=== PATIENT | male | born 1965 | race Caucasian/White ===

== ENCOUNTER 2021-10-03 12:16 | Inpatient (IN) | payer MEDICARE, SELFPAY ==
[2021-10-03] MEDS ORDERED: Morphine 4 MG/ML VIAL ONE (13:12)
[2021-10-03 14:00] LABS: #Lymphocytes 0.4 thou/uL (1.20-3.40); #Monocytes 1.3 thou/uL (0.11-0.59); #Neutrophils 9.7 thou/uL (1.40-6.50); %Basophils 0.1 % (0.0-1.0); %Eosinophils 0.1 % (0.0-10.0); %Lymphocytes 3.2 % (21.0-51.0); %Monocytes 11.4 % (0.0-10.0); %Neutrophils 85.2 % (42.0-75.0); Mean Corpuscular HGB CONC 33.2 g/dL (32.0-36.0); Mean Corpuscular Hemoglobin 33.8 pg (27.0-31.0); Mean Platelet Volume 7.4 fL (7.4-10.4); Platelet Count 156 thou/uL (130-400); RBC Distribution Width 11.6 % (11.5-14.5); Red Blood Cell (RBC) Count 3.55 mill/uL (4.70-6.10); White Blood Cell (WBC) Count 11.3 thou/uL (4.8-10.8)
[2021-10-03 14:24] LABS: ALT (SGPT) 28 U/L (8-55); AST (SGOT) 46 U/L (5-34); Albumin 3.3 g/dL (3.5-5.0); Alkaline Phosphatase 79 U/L (40-110); Anion Gap 17 mmol/L (10-20); BUN (Urea Nitrogen) 5 mg/dL (8.4-25.7); Bilirubin, Total 1.3 mg/dL (0.2-1.2); Calc. Creatinine Clearance 0 mL/min (70-130); Calcium 8.2 mg/dL (7.8-10.44); Carbon Dioxide 22 mmol/L (22-29); Chloride 101 mmol/L (98-107); Globulin 3.6 g/dL (2.4-3.5); Glucose 151 mg/dL (70-105); Lipase 18 U/L (8-78); Potassium 3.7 mmol/L (3.5-5.1); Protein, Total 6.9 g/dL (6.0-8.3); Sodium 136 mmol/L (136-145)
[2021-10-03] MEDS ORDERED: Lorazepam 2 MG/ML VIAL ONE ×2 (14:37→14:52)
[2021-10-03 14:54] LABS: INR-International Normal Ratio 1.1; PTT 28.9 sec (22.9-36.1); Prothrombin Time 14.3 sec (12.0-14.7)
[2021-10-03] MEDS ORDERED: Dextrose 50% Abboject 50 ML SYRINGE SLOW IVP PRN (15:26)
[2021-10-03] MEDS ORDERED: Dextrose 5% in Water 1,000 ML IV PRN (15:26)
[2021-10-03] MEDS ORDERED: Ondansetron ODT 4 MG TAB PO PRN (15:26)
[2021-10-03] MEDS ORDERED: Ondansetron PF 4 MG/2 ML Vial IVP PRN (15:26)
[2021-10-03] MEDS ORDERED: Adenosine 6 MG/2 ML VIAL ONE ×2 (15:27→15:42)
[2021-10-03 15:34] LABS: Magnesium 1.4 mg/dL (1.6-2.6); Phosphorus 3.5 mg/dL (2.3-4.7)
[2021-10-03] MEDS ORDERED: traMADol HCl 50 MG TAB PO PRN (15:34)
[2021-10-03] MEDS ORDERED: Magnesium 2 GM/50 ML BAG (IN WATER) ONE (15:42)
[2021-10-03] MEDS ORDERED: Oxazepam 10 MG CAP PO SCH (16:00)
[2021-10-03 16:05] LABS: Actual Bicarbonate (HCO3v) 18 mEq/L (22-28); Analyzer IN Cardio ER; Base Excess -4.1 mEq/L (-2.0 to +3.0); Chloride (VBG) 102 mmol/L (98-106); Hemoglobin (Hb) 13.1 g/dL (13.1-17.2); Potassium (VBG) 3.58 mmol/L (3.70-5.30); pH (venous) 7.46 (7.32-7.43)
[2021-10-03] MEDS ORDERED: Ibuprofen 200 MG TAB PO SCH (16:15)
[2021-10-03] MEDS ORDERED: Metoprolol Tartrate 5 MG/5 ML VIAL ONE ×2 (16:43→19:16)
[2021-10-03] MEDS ORDERED: Metoprolol Tartrate 25 MG TAB PO SCH (17:00)
[2021-10-03 17:45] LABS: Lactic Acid 3.4 mmol/L (0.5-2.2)
[2021-10-03] MEDS ORDERED: Ibuprofen 200 MG TAB ONE (17:56)
[2021-10-03] MEDS: Lactated Ringer's 1,000 ML IV SCH (18:13)
[2021-10-03] MEDS: Acetaminophen 325 MG TAB PO SCH (18:45)
[2021-10-03] MEDS ORDERED: Metoprolol Tartrate 25 MG TAB ONE (18:48)
[2021-10-03] MEDS ORDERED: traMADol HCl 50 MG TAB ONE (18:48)
[2021-10-03] MEDS: traMADol HCl 50 MG TAB PO SCH (18:51)
[2021-10-03] MEDS ORDERED: hydrALAZINE 20 MG/ML VIAL SLOW IVP PRN (19:20)
[2021-10-03] MEDS ORDERED: Labetalol HCl 100 MG/20 ML VIAL SLOW IVP PRN (19:21)
[2021-10-03] MEDS ORDERED: Famotidine 20 MG TAB ONE (21:24)
[2021-10-03] MEDS: Famotidine 20 MG TAB PO SCH (21:30)
[2021-10-03] MEDS: Gabapentin 300 MG CAP PO SCH (22:51)
[2021-10-03] MEDS: Oxazepam 10 MG CAP PO SCH (22:53)
[2021-10-04] MEDS ORDERED: Acetaminophen 325 MG TAB ONE (00:35)
[2021-10-04] MEDS ORDERED: Ibuprofen 200 MG TAB ONE (00:35)
[2021-10-04] MEDS ORDERED: traMADol HCl 50 MG TAB ONE (00:35)
[2021-10-04] MEDS: Ibuprofen 200 MG TAB PO SCH ×4 (00:43→21:01)
[2021-10-04] MEDS: Acetaminophen 325 MG TAB PO SCH ×5 (00:44→22:51)
[2021-10-04 01:17] LABS: Anion Gap 15 mmol/L (10-20); BUN (Urea Nitrogen) 9 mg/dL (8.4-25.7); Calc. Creatinine Clearance 0 mL/min (70-130); Calcium 8.6 mg/dL (7.8-10.44); Carbon Dioxide 25 mmol/L (22-29); Chloride 100 mmol/L (98-107); Glucose 141 mg/dL (70-105); Potassium 3.9 mmol/L (3.5-5.1); Sodium 136 mmol/L (136-145)
[2021-10-04 04:24] LABS: #Lymphocytes 0.8 thou/uL (1.20-3.40); #Monocytes 1.4 thou/uL (0.11-0.59); #Neutrophils 7.1 thou/uL (1.40-6.50); %Basophils 0.2 % (0.0-1.0); %Eosinophils 0.1 % (0.0-10.0); %Lymphocytes 8.7 % (21.0-51.0); %Monocytes 14.7 % (0.0-10.0); %Neutrophils 76.3 % (42.0-75.0); Mean Corpuscular HGB CONC 33.7 g/dL (32.0-36.0); Mean Corpuscular Hemoglobin 33.9 pg (27.0-31.0); Mean Platelet Volume 7.5 fL (7.4-10.4); Platelet Count 138 thou/uL (130-400); RBC Distribution Width 11.5 % (11.5-14.5); Red Blood Cell (RBC) Count 2.96 mill/uL (4.70-6.10); White Blood Cell (WBC) Count 9.3 thou/uL (4.8-10.8)
[2021-10-04 04:45] LABS: Anion Gap 15 mmol/L (10-20); BUN (Urea Nitrogen) 10 mg/dL (8.4-25.7); Calc. Creatinine Clearance 0 mL/min (70-130); Calcium 8.1 mg/dL (7.8-10.44); Carbon Dioxide 23 mmol/L (22-29); Chloride 99 mmol/L (98-107); Glucose 130 mg/dL (70-105); Magnesium 2.2 mg/dL (1.6-2.6); Phosphorus 2.5 mg/dL (2.3-4.7); Potassium 3.6 mmol/L (3.5-5.1); Sodium 133 mmol/L (136-145)
[2021-10-04] MEDS ORDERED: Morphine 2 MG/ML VIAL ONE (05:12)
[2021-10-04] MEDS: Morphine 2 MG/ML VIAL SLOW IVP PRN (05:23)
[2021-10-04] MEDS: traMADol HCl 50 MG TAB PO SCH ×5 (06:30→22:51)
[2021-10-04] MEDS: Lactated Ringer's 1,000 ML IV SCH ×2 (06:31→21:35)
[2021-10-04 06:45] VITALS: BMI 26.7
[2021-10-04] MEDS ORDERED: CEFAZOLIN 2 GM in Sodium Chloride 0.9% 100 ML IVPB SCH (07:30)
[2021-10-04] MEDS ORDERED: Thiamine 100 MG TAB PO SCH (09:00)
[2021-10-04] MEDS ORDERED: Metoprolol Tartrate 25 MG TAB PO SCH (09:00)
[2021-10-04] MEDS ORDERED: Sodium Chloride 0.9% 100 ML ONE (09:47)
[2021-10-04] MEDS ORDERED: Metoprolol Tartrate 5 MG/5 ML VIAL ONE (09:47)
[2021-10-04] MEDS ORDERED: CEFAZOLIN 2 GM VIAL ONE (09:47)
[2021-10-04] MEDS ORDERED: Midazolam HCl 2 mg/2 ml Vial ONE (10:25)
[2021-10-04] MEDS ORDERED: fentaNYL Citrate/PF 100 MCG/2 ML SYRINGE ONE ×3 (10:25→14:32)
[2021-10-04] MEDS ORDERED: Diazepam 5 MG TAB ONE (10:34)
[2021-10-04] MEDS ORDERED: Lidocaine 1% PF 5 ML VIAL ONE (10:58)
[2021-10-04] MEDS ORDERED: Glycopyrrolate 0.2 MG/ML 5 ML SYRINGE ONE (10:58)
[2021-10-04] MEDS ORDERED: PHENYLEPHRINE-NS 100 MCG/ML 10 ML SYRINGE ONE ×2 (10:58→12:17)
[2021-10-04] MEDS ORDERED: ePHEDrine 50 MG/ML VIAL ONE (10:58)
[2021-10-04] MEDS ORDERED: Rocuronium Bromide 10 MG/ML (10ML VIAL) ONE (10:58)
[2021-10-04] MEDS ORDERED: Ondansetron PF 4 MG/2 ML Vial ONE (10:58)
[2021-10-04] MEDS ORDERED: PROPOFOL 200 MG/20 ML VIAL ONE (10:58)
[2021-10-04] MEDS ORDERED: Dexamethasone 20 MG/5 ML VIAL ONE (10:58)
[2021-10-04] MEDS: Ascorbic Acid 500 mg Chewable Tablet PO SCH (11:54)
[2021-10-04] MEDS: Famotidine 20 MG TAB PO SCH ×2 (11:54→21:02)
[2021-10-04] MEDS: Gabapentin 300 MG CAP PO SCH ×3 (11:54→21:02)
[2021-10-04] MEDS: Folic Acid 1 MG TAB PO SCH (11:54)
[2021-10-04] MEDS: Oxazepam 10 MG CAP PO SCH ×4 (11:55→21:02)
[2021-10-04] MEDS ORDERED: HYDROmorphone 2 MG/ML VIAL SLOW IVP PRN (14:15)
[2021-10-04] MEDS ORDERED: Ketorolac Tromethamine 30 MG/ML VIAL IVP PRN (14:15)
[2021-10-04] MEDS ORDERED: Ondansetron HCl/PF 4 MG/2 ML Vial IVP PRN (14:15)
[2021-10-04] MEDS ORDERED: Meperidine HCl/PF 25 MG/ML VIAL SLOW IVP PRN ×2 (14:15)
[2021-10-04] MEDS ORDERED: Promethazine HCl 25 MG/ML VIAL IM PRN (14:15)
[2021-10-04] MEDS ORDERED: Promethazine HCl 25 MG/ML VIAL IVPB PRN (14:15)
[2021-10-04] MEDS ORDERED: Promethazine HCl 25 MG/ML VIAL ONE (14:32)
[2021-10-04] MEDS ORDERED: Ketorolac Tromethamine 30 MG/ML VIAL ONE (14:38)
[2021-10-04] MEDS ORDERED: Lorazepam 2 MG/ML VIAL ONE ×2 (16:17→18:36)
[2021-10-04] MEDS ORDERED: Haloperidol Lactate 5 MG/ML VIAL SLOW IVP SCH (17:30)
[2021-10-04] MEDS: CEFAZOLIN 2 GM in Sodium Chloride 0.9% 100 ML IVPB SCH ×2 (17:37→17:38)
[2021-10-04] MEDS ORDERED: Lorazepam 2 MG/ML VIAL SLOW IVP SCH (19:30)
[2021-10-04] MEDS: Metoprolol Tartrate 25 MG TAB PO SCH (21:02)
[2021-10-04] MEDS ORDERED: Lorazepam 2 MG/ML VIAL SLOW IVP PRN (21:08)
[2021-10-04] MEDS: Lorazepam 2 MG/ML VIAL SLOW IVP SCH ×2 (21:16→21:37)
[2021-10-04 21:29] LABS: #Lymphocytes 0.5 thou/uL (1.20-3.40); #Monocytes 1.3 thou/uL (0.11-0.59); #Neutrophils 10.8 thou/uL (1.40-6.50); %Eosinophils 0.2 % (0.0-10.0); %Lymphocytes 3.9 % (21.0-51.0); %Monocytes 10.3 % (0.0-10.0); %Neutrophils 85.6 % (42.0-75.0); Hemoglobin 9.2 g/dL (14.0-18.0); Mean Corpuscular HGB CONC 33.4 g/dL (32.0-36.0); Mean Corpuscular Hemoglobin 34.2 pg (27.0-31.0); Mean Platelet Volume 7.5 fL (7.4-10.4); Platelet Count 142 thou/uL (130-400); RBC Distribution Width 11.5 % (11.5-14.5); Red Blood Cell (RBC) Count 2.67 mill/uL (4.70-6.10); White Blood Cell (WBC) Count 12.7 thou/uL (4.8-10.8)
[2021-10-04] MEDS ORDERED: Electrolyte Replacement Protocol 1 EACH FS SCH (21:30)
[2021-10-04 21:49] LABS: Anion Gap 18 mmol/L (10-20); BUN (Urea Nitrogen) 11 mg/dL (8.4-25.7); Calc. Creatinine Clearance 130 mL/min (70-130); Calcium 8.3 mg/dL (7.8-10.44); Carbon Dioxide 23 mmol/L (22-29); Chloride 99 mmol/L (98-107); Glucose 111 mg/dL (70-105); Potassium 3.5 mmol/L (3.5-5.1); Sodium 136 mmol/L (136-145)
[2021-10-04 21:57] LABS: CK (CPK) 1855 U/L (30-200); Phosphorus 1.8 mg/dL (2.3-4.7)
[2021-10-04] MEDS ORDERED: Potassium Chloride 20 MEQ TAB PO SCH ×2 (22:00→22:15)
[2021-10-04] MEDS ORDERED: Magnesium 2 GM/50 ML(in water) 2 GM in Premix Bag 1 BAG IVPB SCH (22:00)
[2021-10-04] MEDS ORDERED: Potassium Chloride 20 MEQ in Premix Bag 1 BAG IVPB SCH (22:30)
[2021-10-04] MEDS: Thiamine HCl 200 MG/2 ML VIAL SLOW IVP SCH (22:50)
[2021-10-04] MEDS: PHOS-NAK 1 PKT PACK PO SCH (22:51)
[2021-10-04] MEDS ORDERED: Potassium Phosphate 15 MMOL in Sodium Chloride 0.9% 100 ML IVPB SCH (23:00)
[2021-10-05] MEDS: CEFAZOLIN 2 GM in Sodium Chloride 0.9% 100 ML IVPB SCH ×3 (01:47→18:32)
[2021-10-05] MEDS: PHOS-NAK 1 PKT PACK PO SCH (01:47)
[2021-10-05 03:45] LABS: #Lymphocytes 0.7 thou/uL (1.20-3.40); #Monocytes 1.3 thou/uL (0.11-0.59); #Neutrophils 8.1 thou/uL (1.40-6.50); %Basophils 0.1 % (0.0-1.0); %Eosinophils 0.1 % (0.0-10.0); %Lymphocytes 6.7 % (21.0-51.0); %Monocytes 12.9 % (0.0-10.0); %Neutrophils 80.2 % (42.0-75.0); Hemoglobin 8.1 g/dL (14.0-18.0); Mean Corpuscular HGB CONC 33.9 g/dL (32.0-36.0); Mean Corpuscular Hemoglobin 34.6 pg (27.0-31.0); Mean Platelet Volume 7.8 fL (7.4-10.4); Platelet Count 127 thou/uL (130-400); RBC Distribution Width 11.3 % (11.5-14.5); Red Blood Cell (RBC) Count 2.35 mill/uL (4.70-6.10); White Blood Cell (WBC) Count 10.1 thou/uL (4.8-10.8)
[2021-10-05 04:13] LABS: Anion Gap 15 mmol/L (10-20); BUN (Urea Nitrogen) 10 mg/dL (8.4-25.7); Calc. Creatinine Clearance 153 mL/min (70-130); Calcium 7.9 mg/dL (7.8-10.44); Carbon Dioxide 24 mmol/L (22-29); Chloride 100 mmol/L (98-107); Glucose 118 mg/dL (70-105); Magnesium 2.1 mg/dL (1.6-2.6); Phosphorus 3.5 mg/dL (2.3-4.7); Potassium 3.6 mmol/L (3.5-5.1); Sodium 135 mmol/L (136-145)
[2021-10-05] MEDS: Ibuprofen 200 MG TAB PO SCH ×3 (05:55→22:06)
[2021-10-05] MEDS: Acetaminophen 325 MG TAB PO SCH ×3 (05:55→18:08)
[2021-10-05] MEDS: traMADol HCl 50 MG TAB PO SCH (05:56)
[2021-10-05] MEDS: Acetaminophen/Codeine 30-300mg Tablet PO PRN ×2 (09:47→20:23)
[2021-10-05] MEDS: Gabapentin 300 MG CAP PO SCH ×3 (09:48→20:26)
[2021-10-05] MEDS: Oxazepam 10 MG CAP PO SCH ×3 (09:48→20:26)
[2021-10-05] MEDS: Metoprolol Tartrate 25 MG TAB PO SCH ×2 (09:48→20:26)
[2021-10-05] MEDS: Folic Acid 1 MG TAB PO SCH (09:48)
[2021-10-05] MEDS: Ascorbic Acid 500 mg Chewable Tablet PO SCH (09:48)
[2021-10-05] MEDS: Famotidine 20 MG TAB PO SCH ×2 (09:48→20:25)
[2021-10-05] MEDS: cloNIDine 0.2 MG TAB PO SCH ×2 (09:49→18:32)
[2021-10-05] MEDS: Lactated Ringer's 1,000 ML IV SCH ×2 (11:16→20:47)
[2021-10-05] MEDS ORDERED: Sodium Chloride 0.9% 1,000 ML IV SCH (14:45)
[2021-10-05] MEDS: Morphine 2 MG/ML VIAL SLOW IVP PRN (15:25)
[2021-10-05] MEDS: Thiamine HCl 200 MG/2 ML VIAL SLOW IVP SCH (22:06)
[2021-10-06] MEDS: Acetaminophen 325 MG TAB PO SCH ×4 (01:18→18:09)
[2021-10-06] MEDS: cloNIDine 0.2 MG TAB PO SCH ×4 (01:18→18:08)
[2021-10-06] MEDS: CEFAZOLIN 2 GM in Sodium Chloride 0.9% 100 ML IVPB SCH ×2 (02:40→09:25)
[2021-10-06 03:49] LABS: #Lymphocytes 1.4 thou/uL (1.20-3.40); #Neutrophils 5.5 thou/uL (1.40-6.50); %Basophils 0.6 % (0.0-1.0); %Eosinophils 0.2 % (0.0-10.0); %Lymphocytes 17.1 % (21.0-51.0); %Monocytes 13.1 % (0.0-10.0); Hemoglobin 7.2 g/dL (14.0-18.0); Mean Corpuscular Hemoglobin 34.7 pg (27.0-31.0); Mean Platelet Volume 7.3 fL (7.4-10.4); Platelet Count 154 thou/uL (130-400); RBC Distribution Width 11.3 % (11.5-14.5); Red Blood Cell (RBC) Count 2.08 mill/uL (4.70-6.10); White Blood Cell (WBC) Count 7.9 thou/uL (4.8-10.8)
[2021-10-06 04:19] LABS: Anion Gap 9 mmol/L (10-20); BUN (Urea Nitrogen) 12 mg/dL (8.4-25.7); CK (CPK) 667 U/L (30-200); Calc. Creatinine Clearance 122 mL/min (70-130); Calcium 7.7 mg/dL (7.8-10.44); Carbon Dioxide 27 mmol/L (22-29); Chloride 103 mmol/L (98-107); Glucose 89 mg/dL (70-105); Magnesium 2.2 mg/dL (1.6-2.6); Sodium 136 mmol/L (136-145)
[2021-10-06] MEDS: Morphine 2 MG/ML VIAL SLOW IVP PRN ×3 (04:40→20:55)
[2021-10-06] MEDS: Ibuprofen 200 MG TAB PO SCH ×3 (07:04→20:54)
[2021-10-06] MEDS ORDERED: Potassium Chloride 20 MEQ TAB PO SCH (09:00)
[2021-10-06] MEDS ORDERED: PHOS-NAK 1 PKT PACK PO SCH (09:00)
[2021-10-06] MEDS: Gabapentin 300 MG CAP PO SCH ×3 (09:23→20:54)
[2021-10-06] MEDS: Famotidine 20 MG TAB PO SCH ×2 (09:23→20:54)
[2021-10-06] MEDS: Folic Acid 1 MG TAB PO SCH (09:23)
[2021-10-06] MEDS: Ferrous Sulfate 325 MG TAB PO SCH ×2 (09:23→20:54)
[2021-10-06] MEDS: Metoprolol Tartrate 25 MG TAB PO SCH ×2 (09:24→20:56)
[2021-10-06] MEDS: Oxazepam 10 MG CAP PO SCH ×3 (09:24→20:54)
[2021-10-06] MEDS: Ascorbic Acid 500 mg Chewable Tablet PO SCH ×2 (09:24→20:54)
[2021-10-06] MEDS: Lactated Ringer's 1,000 ML IV SCH (09:25)
[2021-10-06] MEDS: Acetaminophen/Codeine 30-300mg Tablet PO PRN ×2 (10:39→18:08)
[2021-10-06] MEDS: Thiamine HCl 200 MG/2 ML VIAL SLOW IVP SCH (21:04)
[2021-10-07] MEDS: Acetaminophen 325 MG TAB PO SCH ×3 (00:03→11:56)
[2021-10-07] MEDS: cloNIDine 0.2 MG TAB PO SCH ×5 (00:04→23:35)
[2021-10-07] MEDS: Acetaminophen/Codeine 30-300mg Tablet PO PRN ×2 (00:06→09:53)
[2021-10-07] MEDS: Lactated Ringer's 1,000 ML IV SCH (03:30)
[2021-10-07] MEDS: Ibuprofen 200 MG TAB PO SCH ×3 (05:14→21:47)
[2021-10-07] MEDS: Morphine 2 MG/ML VIAL SLOW IVP PRN ×2 (05:18→08:39)
[2021-10-07 06:30] LABS: Band 1 % (5-11); Hemoglobin 8.6 g/dL (14.0-18.0); Hypochromia SLIGHT = 6-15 cells (100X) (0-5/hpf); Lymphocytes 20 % (21-51); MDiff Complete? YES; Macrocytosis SLIGHT = 6-15 cells (100X) (0-5/hpf); Mean Corpuscular HGB CONC 32.9 g/dL (32.0-36.0); Mean Corpuscular Hemoglobin 33.5 pg (27.0-31.0); Mean Platelet Volume 6.6 fL (7.4-10.4); Monocytes 5 % (0-10); Neutrophil 74 % (42-75); Platelet Count 221 thou/uL (130-400); Platelet Morphology Comment Appears Adequate; RBC Distribution Width 13.6 % (11.5-14.5); Red Blood Cell (RBC) Count 2.56 mill/uL (4.70-6.10); White Blood Cell (WBC) Count 7.3 thou/uL (4.8-10.8)
[2021-10-07] MEDS: Folic Acid 1 MG TAB PO SCH (08:34)
[2021-10-07] MEDS: Ascorbic Acid 500 mg Chewable Tablet PO SCH ×2 (08:34→21:48)
[2021-10-07] MEDS: Ferrous Sulfate 325 MG TAB PO SCH ×2 (08:34→21:48)
[2021-10-07] MEDS: Gabapentin 300 MG CAP PO SCH ×3 (08:35→21:46)
[2021-10-07] MEDS: Metoprolol Tartrate 25 MG TAB PO SCH ×2 (08:35→21:48)
[2021-10-07] MEDS: Oxazepam 10 MG CAP PO SCH ×2 (08:35→21:47)
[2021-10-07] MEDS: Famotidine 20 MG TAB PO SCH ×2 (08:35→21:47)
[2021-10-07] MEDS ORDERED: Acetaminophen 325 MG TAB PO SCH (12:31)
[2021-10-07] MEDS ORDERED: Acetaminophen/Codeine 30-300mg Tablet PO SCH (13:30)
[2021-10-07] MEDS: Acetaminophen/Codeine 30-300mg Tablet PO SCH ×3 (13:37→23:48)
[2021-10-07] MEDS: Thiamine HCl 200 MG/2 ML VIAL SLOW IVP SCH (21:48)
[2021-10-08] MEDS: Acetaminophen/Codeine 30-300mg Tablet PO SCH ×3 (05:40→17:00)
[2021-10-08] MEDS: Ibuprofen 200 MG TAB PO SCH ×3 (05:41→20:33)
[2021-10-08] MEDS: cloNIDine 0.2 MG TAB PO SCH ×3 (05:42→17:00)
[2021-10-08] MEDS ORDERED: Thiamine 100 MG TAB PO SCH (09:00)
[2021-10-08] MEDS: Oxazepam 10 MG CAP PO SCH ×2 (09:07→20:33)
[2021-10-08] MEDS: Metoprolol Tartrate 25 MG TAB PO SCH ×2 (09:07→20:33)
[2021-10-08] MEDS: Enoxaparin Sodium 40 MG/0.4 ML SYRINGE SC SCH (09:07)
[2021-10-08] MEDS: Ferrous Sulfate 325 MG TAB PO SCH ×2 (09:08→20:33)
[2021-10-08] MEDS: Folic Acid 1 MG TAB PO SCH (09:08)
[2021-10-08] MEDS: Famotidine 20 MG TAB PO SCH ×2 (09:08→20:33)
[2021-10-08] MEDS: Thiamine 100 MG TAB PO SCH (09:08)
[2021-10-08] MEDS: Ascorbic Acid 500 mg Chewable Tablet PO SCH ×2 (09:08→20:34)
[2021-10-08] MEDS: Gabapentin 300 MG CAP PO SCH ×3 (09:08→20:34)
[2021-10-09] MEDS: cloNIDine 0.2 MG TAB PO SCH ×4 (00:23→17:42)
[2021-10-09] MEDS: Acetaminophen/Codeine 30-300mg Tablet PO SCH ×4 (00:23→17:40)
[2021-10-09] MEDS: Ibuprofen 200 MG TAB PO SCH ×3 (05:37→21:32)
[2021-10-09] MEDS: Gabapentin 300 MG CAP PO SCH ×3 (09:04→21:32)
[2021-10-09] MEDS: Thiamine 100 MG TAB PO SCH (09:04)
[2021-10-09] MEDS: Ascorbic Acid 500 mg Chewable Tablet PO SCH ×2 (09:04→21:32)
[2021-10-09] MEDS: Folic Acid 1 MG TAB PO SCH (09:04)
[2021-10-09] MEDS: Metoprolol Tartrate 25 MG TAB PO SCH ×2 (09:05→21:32)
[2021-10-09] MEDS: Famotidine 20 MG TAB PO SCH ×2 (09:05→21:32)
[2021-10-09] MEDS: Ferrous Sulfate 325 MG TAB PO SCH ×2 (09:05→21:32)
[2021-10-09] MEDS: Enoxaparin Sodium 40 MG/0.4 ML SYRINGE SC SCH (09:05)
[2021-10-09] MEDS: Oxazepam 10 MG CAP PO SCH ×2 (09:05→21:32)
[2021-10-10] MEDS: Acetaminophen/Codeine 30-300mg Tablet PO SCH ×4 (00:06→17:38)
[2021-10-10] MEDS: cloNIDine 0.2 MG TAB PO SCH ×4 (00:06→17:39)
[2021-10-10] MEDS: Ibuprofen 200 MG TAB PO SCH ×3 (05:24→21:06)
[2021-10-10] MEDS: Metoprolol Tartrate 25 MG TAB PO SCH ×2 (08:54→21:06)
[2021-10-10] MEDS: Folic Acid 1 MG TAB PO SCH (08:54)
[2021-10-10] MEDS: Gabapentin 300 MG CAP PO SCH ×3 (08:54→21:05)
[2021-10-10] MEDS: Thiamine 100 MG TAB PO SCH (08:54)
[2021-10-10] MEDS: Ferrous Sulfate 325 MG TAB PO SCH ×2 (08:54→21:06)
[2021-10-10] MEDS: Famotidine 20 MG TAB PO SCH ×2 (08:55→21:05)
[2021-10-10] MEDS: Oxazepam 10 MG CAP PO SCH ×2 (08:55→21:06)
[2021-10-10] MEDS: Ascorbic Acid 500 mg Chewable Tablet PO SCH ×2 (08:55→21:05)
[2021-10-10] MEDS: Enoxaparin Sodium 40 MG/0.4 ML SYRINGE SC SCH (08:55)
[2021-10-10] MEDS ORDERED: Citalopram 10 MG TAB PO SCH (21:30)
[2021-10-11] MEDS: cloNIDine 0.2 MG TAB PO SCH ×5 (00:02→17:30)
[2021-10-11] MEDS: Acetaminophen/Codeine 30-300mg Tablet PO SCH ×4 (00:03→17:31)
[2021-10-11] MEDS: Ibuprofen 200 MG TAB PO SCH ×3 (05:24→21:05)
[2021-10-11] MEDS: Enoxaparin Sodium 40 MG/0.4 ML SYRINGE SC SCH (08:12)
[2021-10-11] MEDS: Famotidine 20 MG TAB PO SCH ×2 (08:13→21:04)
[2021-10-11] MEDS: Gabapentin 300 MG CAP PO SCH ×3 (08:13→21:05)
[2021-10-11] MEDS: Ferrous Sulfate 325 MG TAB PO SCH ×2 (08:13→21:05)
[2021-10-11] MEDS: Metoprolol Tartrate 25 MG TAB PO SCH ×2 (08:13→21:05)
[2021-10-11] MEDS: Oxazepam 10 MG CAP PO SCH ×2 (08:13→21:04)
[2021-10-11] MEDS: Thiamine 100 MG TAB PO SCH (08:13)
[2021-10-11] MEDS: Ascorbic Acid 500 mg Chewable Tablet PO SCH ×2 (08:13→21:04)
[2021-10-11] MEDS: Folic Acid 1 MG TAB PO SCH (08:14)
[2021-10-11] MEDS: Citalopram 10 MG TAB PO SCH (21:04)
[2021-10-12] MEDS: cloNIDine 0.2 MG TAB PO SCH ×5 (00:01→23:10)
[2021-10-12] MEDS: Acetaminophen/Codeine 30-300mg Tablet PO SCH ×5 (00:02→23:09)
[2021-10-12] MEDS: Ibuprofen 200 MG TAB PO SCH ×3 (05:25→23:09)
[2021-10-12] MEDS: Enoxaparin Sodium 40 MG/0.4 ML SYRINGE SC SCH (08:00)
[2021-10-12] MEDS: Thiamine 100 MG TAB PO SCH (08:01)
[2021-10-12] MEDS: Oxazepam 10 MG CAP PO SCH ×2 (08:01→20:16)
[2021-10-12] MEDS: Gabapentin 300 MG CAP PO SCH ×3 (08:01→20:15)
[2021-10-12] MEDS: Ascorbic Acid 500 mg Chewable Tablet PO SCH ×2 (08:01→20:16)
[2021-10-12] MEDS: Ferrous Sulfate 325 MG TAB PO SCH ×2 (08:01→20:15)
[2021-10-12] MEDS: Metoprolol Tartrate 25 MG TAB PO SCH ×2 (08:01→20:16)
[2021-10-12] MEDS: Folic Acid 1 MG TAB PO SCH (08:01)
[2021-10-12] MEDS: Famotidine 20 MG TAB PO SCH ×2 (08:01→20:16)
[2021-10-12] MEDS: Cyclobenzaprine 10 MG TAB PO PRN ×2 (13:02→20:17)
[2021-10-12] MEDS: Citalopram 10 MG TAB PO SCH (20:17)
[2021-10-13] MEDS: Ibuprofen 200 MG TAB PO SCH ×2 (04:59→14:39)
[2021-10-13] MEDS: Acetaminophen/Codeine 30-300mg Tablet PO SCH ×3 (05:00→17:26)
[2021-10-13] MEDS: cloNIDine 0.2 MG TAB PO SCH (05:01)
[2021-10-13] MEDS: Metoprolol Tartrate 25 MG TAB PO SCH (08:46)
[2021-10-13] MEDS: Oxazepam 10 MG CAP PO SCH (08:46)
[2021-10-13] MEDS: Thiamine 100 MG TAB PO SCH (08:46)
[2021-10-13] MEDS: Ferrous Sulfate 325 MG TAB PO SCH (08:46)
[2021-10-13] MEDS: Folic Acid 1 MG TAB PO SCH (08:46)
[2021-10-13] MEDS: Ascorbic Acid 500 mg Chewable Tablet PO SCH (08:46)
[2021-10-13] MEDS: Gabapentin 300 MG CAP PO SCH ×2 (08:46→14:39)
[2021-10-13] MEDS: Famotidine 20 MG TAB PO SCH (08:46)
[2021-10-13] MEDS: Enoxaparin Sodium 40 MG/0.4 ML SYRINGE SC SCH (08:46)
[2021-10-13] MEDS ORDERED: cloNIDine 0.1 MG TAB PO SCH (11:30)
[2021-10-13 15:54] VITALS: BP 123/80; TEMP 98.5
== END 2021-10-13 19:37 | DRG 958 ==
LOC: ERS 12:16 → ERHOLD 15:26 → 2NO 10-04 06:07 → IMCU/EMU 10-04 20:28 → SURG A 10-06 19:58
PROVIDERS: ADMIT Surgery; ATTEND Surgery
PROC: 0QSH04Z Reposition Left Tibia with Internal Fixation Device, Open Approach (ICD-10-PCS; principal; 2021-10-04)
PROC: 0QSG04Z Reposition Right Tibia with Internal Fixation Device, Open Approach (ICD-10-PCS; 2021-10-04)
PROC: 30233N1 Transfusion of Nonautologous Red Blood Cells into Peripheral Vein, Percutaneous Approach (ICD-10-PCS; 2021-10-06)
DX: S82.142A Displaced bicondylar fracture of left tibia, initial encounter for closed fracture (principal); S06.5X0A Traumatic subdural hemorrhage without loss of consciousness, initial encounter; S82.141A Displaced bicondylar fracture of right tibia, initial encounter for closed fracture; T79.6XXA Traumatic ischemia of muscle, initial encounter; I31.3 Pericardial effusion (noninflammatory); D62 Acute posthemorrhagic anemia; F10.139 Alcohol abuse with withdrawal, unspecified; Z20.822 Contact with and (suspected) exposure to COVID-19; I10 Essential (primary) hypertension; E87.6 Hypokalemia; E83.39 Other disorders of phosphorus metabolism; F32.A Depression, unspecified; V57.5XXA Driver of pick-up truck or van injured in collision with fixed or stationary object in traffic accident, initial encounter; Z79.899 Other long term (current) drug therapy; Z78.1 Physical restraint status
CPT/HCPCS: 36415; 36416; 36430; 70450; 71045; 76000; 80048; 80053; 82550; 82805; 83605; 83690; 83735; 83880; 84100; 84443; 84484; 85025; 85610; 85730; 86850; 86900; 86901; 93005; 93306; 94760; 96361; 96365; 96375; 96376; C1713; G0390; J0153; J0690; J1100; J1630; J1650; J1885; J2060; J2250; J2270; J2405; J2550; J2704; J3411; J3475; J3480; J3490; J7050; J7120; P9016

== ENCOUNTER 2023-05-07 00:29 | Inpatient (IN) | payer MEDICARE ==
[2023-05-07] MEDS ORDERED: Acetaminophen 500 MG TAB ONE (02:12)
[2023-05-07] MEDS ORDERED: Ketorolac Tromethamine 30 MG (1 mL) VIAL ONE (02:12)
[2023-05-07 02:43] LABS: Hematocrit 38.1 % (42.0-52.0); Hemoglobin 13.6 g/dL (14.0-18.0); Manual Diff?? YES; Mean Corpuscular HGB CONC 35.7 g/dL (32.0-36.0); Mean Corpuscular Hemoglobin 33.8 pg (27.0-31.0); Mean Corpuscular Volume 94.8 fl (78.0-98.0); Mean Platelet Volume 9.3 fL (7.4-10.4); Platelet Count 217 10x3/uL (130-400); RBC Distribution Width 12.1 % (11.5-14.5); Red Blood Cell (RBC) Count 4.02 mill/uL (4.70-6.10); White Blood Cell (WBC) Count 34.9 10x3/uL (4.8-10.8)
[2023-05-07 02:44] LABS: Delete Auto Diff?? YES
[2023-05-07 02:52] LABS: INR-International Normal Ratio 1.1; Prothrombin Time 14.3 sec (12.0-14.7)
[2023-05-07 02:53] LABS: PTT 29.6 sec (22.9-36.1)
[2023-05-07 03:10] LABS: Anion Gap 12 mmol/L (10-20); BUN (Urea Nitrogen) 12 mg/dL (8.4-25.7); Calc. Creatinine Clearance 0 mL/min (70-130); Carbon Dioxide 27 mmol/L (22-29); Chloride 96 mmol/L (98-107); Sodium 131 mmol/L (136-145)
[2023-05-07] MEDS ORDERED: Cefepime 2 GM VIAL ONE (03:10)
[2023-05-07] MEDS ORDERED: Sodium Chloride 0.9% 100 ML ONE (03:10)
[2023-05-07 03:11] LABS: ALT (SGPT) 26 U/L (8-55); AST (SGOT) 24 U/L (5-34); Albumin 3.8 g/dL (3.5-5.0); Alkaline Phosphatase 99 U/L (40-110); Bilirubin, Total 1.1 mg/dL (0.2-1.2); Calcium 8.8 mg/dL (7.8-10.44); Estimated GFR 102; Globulin 3.6 g/dL (2.4-3.5); Glucose 100 mg/dL (70-105); Protein, Total 7.4 g/dL (6.0-8.3)
[2023-05-07] MEDS ORDERED: Ondansetron PF 4 MG/2 ML Vial IVP PRN (03:15)
[2023-05-07] MEDS ORDERED: Ondansetron ODT 4 MG TAB SL PRN (03:15)
[2023-05-07 03:25] LABS: Anisocytosis SLIGHT = 6-15 cells HPF (0-5); Band 24 % (5-11); CellaVision Operator ID LAB.JMM; Lymphocytes 3 % (21-51); Macrocytosis SLIGHT = 6-15 cells HPF (0-5); Metamyelocyte 1 % (0-0); Monocytes 5 % (0-10); Myelocyte 1 % (0-0); Neutrophil 66 % (42-75); Platelet Adequacy Comment Platelets Normal; Total Cell Count 101
[2023-05-07 04:53] VITALS: BMI 25.6
[2023-05-07] MEDS: Vancomycin (BATCH) 1.5 GM in Premix 1 BAG IVPB SCH (05:49)
[2023-05-07] MEDS: Cefepime 2 GM in Sodium Chloride 0.9% 100 ML IVPB SCH ×2 (05:49→15:53)
[2023-05-07] MEDS: Lactated Ringer's 1,000 ML IV SCH (05:49)
[2023-05-07] MEDS: Acetaminophen 325 MG TAB PO PRN (09:54)
[2023-05-07] MEDS: HYDROcodone/Acetaminophen 7.5/325 mg Tablet PO PRN (10:44)
[2023-05-07] MEDS: Vancomycin HCl 500 MG in Sodium Chloride 0.9% 100 ML IVPB SCH (13:03)
[2023-05-07] MEDS: Morphine 2 MG/ML VIAL SLOW IVP PRN (18:23)
[2023-05-07] MEDS: Vancomycin 1 GM in Premix 1 BAG IVPB SCH (18:24)
[2023-05-07] MEDS ORDERED: Pantoprazole 40 MG VIAL IVP SCH (21:00)
[2023-05-07] MEDS: Pantoprazole 40 MG VIAL IVP SCH (21:35)
[2023-05-08] MEDS ORDERED: PROPOFOL 20 ML ONE (07:20)
[2023-05-08] MEDS ORDERED: HYDROmorphone 2 MG/ML VIAL ONE (07:20)
[2023-05-08 07:36] LABS: #Monocytes 1.1 thou/uL (0.11-0.59); #Neutrophils 19.5 thou/uL (1.40-6.50); %Basophils 0.1 % (0.0-1.0); %Lymphocytes 3.6 % (21.0-51.0); Hematocrit 36.9 % (42.0-52.0); Hemoglobin 13.1 g/dL (14.0-18.0); Mean Corpuscular HGB CONC 35.5 g/dL (32.0-36.0); Mean Corpuscular Hemoglobin 33.6 pg (27.0-31.0); Mean Corpuscular Volume 94.6 fl (78.0-98.0); Mean Platelet Volume 9.5 fL (7.4-10.4); Platelet Count 176 10x3/uL (130-400); RBC Distribution Width 11.9 % (11.5-14.5); White Blood Cell (WBC) Count 22.2 10x3/uL (4.8-10.8)
[2023-05-08] MEDS ORDERED: fentaNYL 50 mcg/mL 1 mL Vial ONE (07:42)
[2023-05-08 08:00] LABS: Anion Gap 12 mmol/L (10-20); BUN (Urea Nitrogen) 8 mg/dL (8.4-25.7); Calc. Creatinine Clearance 141 mL/min (70-130); Calcium 9.2 mg/dL (7.8-10.44); Carbon Dioxide 25 mmol/L (22-29); Chloride 98 mmol/L (98-107); Estimated GFR 109; Glucose 108 mg/dL (70-105); Potassium 3.2 mmol/L (3.5-5.1); Sodium 132 mmol/L (136-145)
[2023-05-08] MEDS ORDERED: Dexamethasone 20 MG/5 ML VIAL ONE (08:24)
[2023-05-08] MEDS ORDERED: Ketorolac Tromethamine 30 MG (1 mL) VIAL ONE (08:24)
[2023-05-08] MEDS ORDERED: Lidocaine 1% PF 5 ML VIAL ONE (08:24)
[2023-05-08] MEDS ORDERED: ePHEDrine Sulfate 50 MG/10 ML VIAL ONE (08:26)
[2023-05-08] MEDS ORDERED: HYDROmorphone 2 MG/ML VIAL SLOW IVP PRN (09:03)
[2023-05-08] MEDS ORDERED: Ondansetron HCl/PF 4 MG/2 ML Vial IVP PRN (09:03)
[2023-05-08] MEDS ORDERED: PACU-Morphine 4MG/ML VIAL SLOW IVP PRN (09:03)
[2023-05-08] MEDS ORDERED: Promethazine HCl 25 MG/ML VIAL IM PRN (09:03)
[2023-05-08] MEDS: Pantoprazole 40 MG VIAL IVP SCH (10:36)
[2023-05-08 18:52] LABS: Vancomycin, Trough 9.5 ug/mL
[2023-05-08] MEDS ORDERED: Pantoprazole 40 MG VIAL IVP SCH (20:00)
[2023-05-09] MEDS: Vancomycin 1 GM in Premix 1 BAG IVPB SCH (02:09)
[2023-05-09 04:42] LABS: #Monocytes 0.7 thou/uL (0.11-0.59); #Neutrophils 15.1 thou/uL (1.40-6.50); %Basophils 0.1 % (0.0-1.0); %Lymphocytes 2.8 % (21.0-51.0); %Monocytes 4.2 % (0.0-10.0); %Neutrophils 91.9 % (42.0-75.0); Hematocrit 35.4 % (42.0-52.0); Hemoglobin 12.4 g/dL (14.0-18.0); Mean Corpuscular Hemoglobin 33.2 pg (27.0-31.0); Mean Corpuscular Volume 94.7 fl (78.0-98.0); Mean Platelet Volume 9.9 fL (7.4-10.4); Platelet Count 204 10x3/uL (130-400); RBC Distribution Width 11.8 % (11.5-14.5); Red Blood Cell (RBC) Count 3.74 mill/uL (4.70-6.10); White Blood Cell (WBC) Count 16.4 10x3/uL (4.8-10.8)
[2023-05-09 05:02] LABS: Anion Gap 11 mmol/L (10-20); BUN (Urea Nitrogen) 11 mg/dL (8.4-25.7); Calc. Creatinine Clearance 141 mL/min (70-130); Calcium 8.9 mg/dL (7.8-10.44); Carbon Dioxide 27 mmol/L (22-29); Chloride 97 mmol/L (98-107); Estimated GFR 109; Glucose 136 mg/dL (70-105); Potassium 3.2 mmol/L (3.5-5.1); Sodium 132 mmol/L (136-145)
[2023-05-09 08:44] LABS: Magnesium 1.9 mg/dL (1.6-2.6)
[2023-05-09] MEDS ORDERED: Electrolyte Replacement Protocol 1 EACH FS SCH (09:00)
[2023-05-09] MEDS: Gabapentin 300 MG CAP PO SCH (09:18)
[2023-05-09] MEDS: Potassium Chloride 20 MEQ TAB PO SCH (09:18)
[2023-05-09] MEDS ORDERED: Lorazepam 1 MG TAB PO PRN (09:34)
[2023-05-09] MEDS ORDERED: Lorazepam 2 MG/ML VIAL IM PRN (09:34)
[2023-05-09 09:54] LABS: Bacteria/HPF None Seen HPF (None Seen); Bilirubin Negative (Negative); Blood, Urine Negative (Negative); Clarity Clear (Clear); Glucose, Urine (Dipstick) Normal (Negative); Ketone, Urine Negative (Negative); Leukocyte Negative Leu/uL (Negative); Nitrite Negative (Negative); Protein, Urine (Dipstick) Negative (Neg-Trace); RBC/HPF None Seen HPF (0-3); Specific Gravity, Urine 1.006 (1.002-1.036); Squamous Epithelial None Seen HPF (0-3); Urobilinogen Normal mg/dL (Less than 2); WBC/HPF 0-3 HPF (0-3)
[2023-05-09 10:11] LABS: Amphetamine Not Detected (NotDetected); Barbiturates Screen Not Detected (NotDetected); Benzodiazepine Screen Not Detected (NotDetected); Cocaine Metabolite Screen Not Detected (NotDetected); Methadone Not Detected (NotDetected); Methamphetamine Not Detected (NotDetected); Opiate Screen Detected (NotDetected); Oxycodone Screen Not Detected (NotDetected); Phencyclidine (PCP) Not Detected (NotDetected); THC/Cannabinoid Screen Detected (NotDetected); Tricyclic Screen Not Detected (NotDetected)
[2023-05-09 10:15] LABS: ALT (SGPT) 20 U/L (8-55); AST (SGOT) 21 U/L (5-34); Albumin 3.4 g/dL (3.5-5.0); Alkaline Phosphatase 87 U/L (40-110); Bilirubin, Direct 0.4 mg/dL (0.1-0.3); Bilirubin, Total 0.7 mg/dL (0.2-1.2); Protein, Total 6.8 g/dL (6.0-8.3)
[2023-05-09 10:40] LABS: Creatinine, Urine Less than 20.00 mg/dL (63-166); Protein, Urine Random Quant Less than 10 mg/dL (1-14); Sodium, Urine 41 mmol/L (Not Available); Urea Nitrogen, Random Urine 209 mg/dl
[2023-05-09] MEDS ORDERED: Polyethylene Glycol 3350 17 GM Packet PO PRN (10:48)
[2023-05-09] MEDS: Polyethylene Glycol 3350 17 GM Packet PO SCH (11:16)
[2023-05-09] MEDS: Lisinopril 5 MG TAB PO SCH (11:16)
[2023-05-09] MEDS: Magnesium 2 GM/50 ML(in water) 2 GM in Premix 1 BAG IVPB SCH (11:20)
[2023-05-09] MEDS: Boostrix 0.5 ML (Tdap) VIAL (>/=7 yrs of age) IM ONE (12:16)
[2023-05-09 12:36] LABS: SARS-CoV-2 NAA Rapid Test Not Detected (NotDetected)
[2023-05-09] MEDS: chlordiazePOXIDE HCl 25 MG CAP PO SCH (14:53)
[2023-05-09] MEDS ORDERED: Thiamine HCl 200 MG/2 ML VIAL SLOW IVP SCH (15:00)
[2023-05-09 17:06] LABS: Vancomycin, Trough 15.9 ug/mL
[2023-05-09] MEDS: Senokot S 8.6-50 MG TAB PO SCH (21:28)
[2023-05-10 05:04] LABS: #Monocytes 1.2 thou/uL (0.11-0.59); #Neutrophils 8.1 thou/uL (1.40-6.50); %Basophils 0.2 % (0.0-1.0); %Lymphocytes 11.4 % (21.0-51.0); %Monocytes 11.4 % (0.0-10.0); Hematocrit 40.4 % (42.0-52.0); Hemoglobin 13.7 g/dL (14.0-18.0); Mean Corpuscular HGB CONC 33.9 g/dL (32.0-36.0); Mean Corpuscular Hemoglobin 32.9 pg (27.0-31.0); Mean Corpuscular Volume 96.9 fl (78.0-98.0); Mean Platelet Volume 9.5 fL (7.4-10.4); Platelet Count 226 10x3/uL (130-400); Red Blood Cell (RBC) Count 4.17 mill/uL (4.70-6.10); White Blood Cell (WBC) Count 10.7 10x3/uL (4.8-10.8)
[2023-05-10 05:29] LABS: ALT (SGPT) 31 U/L (8-55); AST (SGOT) 27 U/L (5-34); Albumin 3.4 g/dL (3.5-5.0); Alkaline Phosphatase 92 U/L (40-110); Anion Gap 13 mmol/L (10-20); BUN (Urea Nitrogen) 13 mg/dL (8.4-25.7); Bilirubin, Direct 0.4 mg/dL (0.1-0.3); Bilirubin, Total 0.9 mg/dL (0.2-1.2); Calc. Creatinine Clearance 126 mL/min (70-130); Calcium 9.2 mg/dL (7.8-10.44); Carbon Dioxide 28 mmol/L (22-29); Cardiac Risk 3.5 (Less than 4.5); Chloride 98 mmol/L (98-107); Cholesterol 139 mg/dl (< 200 Desired); Estimated GFR 105; Glucose 79 mg/dL (70-105); HDL Cholesterol 40 mg/dL (>60 Neg Risk); Iron 43 ug/dL (65-175); Iron Binding Capacity, Total 208 mcg/dL (261-462); LDL Cholesterol, Calculated 77 mg/dL; Potassium 2.9 mmol/L (3.5-5.1); Protein, Total 7.3 g/dL (6.0-8.3); Sodium 136 mmol/L (136-145); Triglycerides 111 mg/dL (Less than 150)
[2023-05-10 05:36] LABS: Hemoglobin A1c 5.1 % (4.0-6.0)
[2023-05-10 05:39] LABS: Iron 42 ug/dL (65-175); Iron Binding Capacity, Total 205 mcg/dL (261-462)
[2023-05-10 05:53] LABS: HIV (1/2) Antibody/Antigen Non-Reactive (NonReactive)
[2023-05-10 06:08] LABS: Ferritin 1541.07 ng/mL (22-322); Vitamin B12 373 pg/mL (211-911)
[2023-05-10] MEDS: Potassium Chloride 20 MEQ TAB PO SCH (09:11)
[2023-05-10] MEDS: Multivit, Therapeutic 1 TAB PO SCH (09:12)
[2023-05-10] MEDS: Folic Acid 1 MG TAB PO SCH (09:12)
[2023-05-10] MEDS: Lisinopril 10 MG TAB PO SCH ×2 (09:12→13:18)
[2023-05-10] MEDS: Polyethylene Glycol 3350 17 GM Packet PO SCH (09:12)
[2023-05-10] MEDS ORDERED: Lorazepam 1 MG TAB PO PRN (09:34)
[2023-05-10 11:06] LABS: Syphilis Antibody Nonreactive (Nonreactive); Syphilis Antibody Index 0.09 S/CO (<1.00 Non-Reactive)
[2023-05-10] MEDS: Magnesium 2 GM/50 ML(in water) 2 GM in Premix 1 BAG IVPB SCH (11:13)
[2023-05-10] MEDS: Magnesium 2 GM/50 ML BAG (IN WATER) ONE (11:14)
[2023-05-10] MEDS ORDERED: Lisinopril 10 MG TAB PO SCH (12:05)
[2023-05-11 05:21] LABS: Anion Gap 15 mmol/L (10-20); BUN (Urea Nitrogen) 13 mg/dL (8.4-25.7); Calc. Creatinine Clearance 123 mL/min (70-130); Calcium 9.2 mg/dL (7.8-10.44); Carbon Dioxide 24 mmol/L (22-29); Chloride 101 mmol/L (98-107); Estimated GFR 104; Glucose 94 mg/dL (70-105); Potassium 3.5 mmol/L (3.5-5.1); Sodium 136 mmol/L (136-145)
[2023-05-11] MEDS: Magnesium 2 GM/50 ML(in water) 2 GM in Premix 1 BAG IVPB SCH (08:22)
[2023-05-11] MEDS: Lisinopril 20 MG TAB PO SCH (08:28)
[2023-05-11] MEDS: Potassium Chloride 20 MEQ TAB PO SCH (08:28)
[2023-05-11 09:24] LABS: Vancomycin, Trough 18.7 ug/mL
[2023-05-11] MEDS ORDERED: Lorazepam 1 MG TAB PO PRN (09:34)
[2023-05-11] MEDS: HYDROcodone/Acetaminophen 7.5/325 mg Tablet PO PRN (16:45)
[2023-05-11] MEDS: CEFAZOLIN 2 GM in Sodium Chloride 0.9% 100 ML IVPB SCH (17:49)
[2023-05-12 05:56] LABS: Anion Gap 13 mmol/L (10-20); BUN (Urea Nitrogen) 15 mg/dL (8.4-25.7); Calc. Creatinine Clearance 126 mL/min (70-130); Calcium 8.9 mg/dL (7.8-10.44); Carbon Dioxide 24 mmol/L (22-29); Chloride 102 mmol/L (98-107); Estimated GFR 105; Glucose 98 mg/dL (70-105); Magnesium 2.1 mg/dL (1.6-2.6); Potassium 3.3 mmol/L (3.5-5.1); Sodium 136 mmol/L (136-145)
[2023-05-12] MEDS: Potassium Chloride 20 MEQ TAB PO SCH (09:22)
[2023-05-12] MEDS ORDERED: Lorazepam 0.5 MG TAB PO PRN (09:34)
[2023-05-12] MEDS ORDERED: Bacteriostatic Sodium Chloride 10 ML VIAL ONE (10:37)
[2023-05-12] MEDS ORDERED: Lidocaine 1% PF 5 ML VIAL ONE (10:37)
[2023-05-12] MEDS ORDERED: Sodium Bicarbonate 0.5 MEQ/ML SDV 10 ML ONE (10:38)
[2023-05-13 05:33] LABS: Anion Gap 15 mmol/L (10-20); BUN (Urea Nitrogen) 13 mg/dL (8.4-25.7); Calc. Creatinine Clearance 125 mL/min (70-130); Calcium 9.2 mg/dL (7.8-10.44); Carbon Dioxide 21 mmol/L (22-29); Chloride 103 mmol/L (98-107); Estimated GFR 105; Glucose 101 mg/dL (70-105); Potassium 3.8 mmol/L (3.5-5.1); Sodium 135 mmol/L (136-145)
[2023-05-14 05:45] LABS: Anion Gap 12 mmol/L (10-20); BUN (Urea Nitrogen) 17 mg/dL (8.4-25.7); CRP (Inflammatory) 7.59 mg/dL (= or < 0.5); Calc. Creatinine Clearance 114 mL/min (70-130); Calcium 9.1 mg/dL (7.8-10.44); Carbon Dioxide 21 mmol/L (22-29); Chloride 102 mmol/L (98-107); Estimated GFR 102; Glucose 105 mg/dL (70-105); Potassium 3.6 mmol/L (3.5-5.1); Sodium 131 mmol/L (136-145)
[2023-05-14] MEDS ORDERED: cloNIDine 0.1 MG TAB PO PRN (12:23)
[2023-05-14] MEDS: Heparin 5,000 UNITS/ML VIAL SC SCH (21:55)
[2023-05-15 07:44] LABS: Anion Gap 14 mmol/L (10-20); BUN (Urea Nitrogen) 11 mg/dL (8.4-25.7); Calc. Creatinine Clearance 112 mL/min (70-130); Calcium 9.4 mg/dL (7.8-10.44); Carbon Dioxide 25 mmol/L (22-29); Chloride 101 mmol/L (98-107); Estimated GFR 101; Glucose 97 mg/dL (70-105); Potassium 4.4 mmol/L (3.5-5.1); Sodium 136 mmol/L (136-145)
[2023-05-15] MEDS: Lisinopril 10 MG TAB PO SCH (09:13)
[2023-05-15] MEDS: chlordiazePOXIDE HCl 5 MG CAP PO SCH (18:08)
[2023-05-15] MEDS: Saccharomyces boulardii 250 MG CAP PO SCH (22:02)
[2023-05-17 07:47] LABS: #Basophils 0.1 thou/uL (0.0-0.2); #Eosinphils 0.2 thou/uL (0.0-0.7); #Monocytes 1.3 thou/uL (0.11-0.59); #Neutrophils 7.6 thou/uL (1.40-6.50); %Basophils 0.6 % (0.0-1.0); %Eosinophils 1.4 % (0.0-10.0); %Lymphocytes 15.5 % (21.0-51.0); %Monocytes 11.5 % (0.0-10.0); %Neutrophils 70.2 % (42.0-75.0); Hematocrit 40.3 % (42.0-52.0); Hemoglobin 13.9 g/dL (14.0-18.0); Mean Corpuscular HGB CONC 34.5 g/dL (32.0-36.0); Mean Corpuscular Hemoglobin 32.9 pg (27.0-31.0); Mean Corpuscular Volume 95.3 fl (78.0-98.0); Mean Platelet Volume 8.8 fL (7.4-10.4); Platelet Count 405 10x3/uL (130-400); RBC Distribution Width 11.9 % (11.5-14.5); Red Blood Cell (RBC) Count 4.23 mill/uL (4.70-6.10); White Blood Cell (WBC) Count 10.8 10x3/uL (4.8-10.8)
[2023-05-17 08:24] LABS: Anion Gap 12 mmol/L (10-20); BUN (Urea Nitrogen) 10 mg/dL (8.4-25.7); Calc. Creatinine Clearance 120 mL/min (70-130); Calcium 9.6 mg/dL (7.8-10.44); Carbon Dioxide 25 mmol/L (22-29); Chloride 101 mmol/L (98-107); Estimated GFR 103; Glucose 106 mg/dL (70-105); Sodium 134 mmol/L (136-145)
[2023-05-17 19:37] VITALS: BP 127/81; TEMP 99.2
== END 2023-05-17 20:05 | disposition home or self-care (01) | DRG 495 ==
LOC: ERS 00:29 → SURG B 02:55
PROVIDERS: ADMIT Orthopaedic Surgery; ATTEND Orthopaedic Surgery
PROC: 3E03329 Introduction of Other Anti-infective into Peripheral Vein, Percutaneous Approach (ICD-10-PCS; 2023-05-07)
PROC: 0QPG04Z Removal of Internal Fixation Device from Right Tibia, Open Approach (ICD-10-PCS; 2023-05-08)
PROC: 02HV33Z Insertion of Infusion Device into Superior Vena Cava, Percutaneous Approach (ICD-10-PCS; principal; 2023-05-12)
PROC: B5181ZA Fluoroscopy of Superior Vena Cava using Low Osmolar Contrast, Guidance (ICD-10-PCS; 2023-05-12)
PROC: B548ZZA Ultrasonography of Superior Vena Cava, Guidance (ICD-10-PCS; 2023-05-12)
DX: T84.622A Infection and inflammatory reaction due to internal fixation device of right tibia, initial encounter (principal); A41.2 Sepsis due to unspecified staphylococcus; G93.41 Metabolic encephalopathy; R65.20 Severe sepsis without septic shock; J69.0 Pneumonitis due to inhalation of food and vomit; M48.56XA Collapsed vertebra, not elsewhere classified, lumbar region, initial encounter for fracture; E87.1 Hypo-osmolality and hyponatremia; G89.29 Other chronic pain; I10 Essential (primary) hypertension; F12.10 Cannabis abuse, uncomplicated; F10.20 Alcohol dependence, uncomplicated; E87.6 Hypokalemia; Y83.8 Other surgical procedures as the cause of abnormal reaction of the patient, or of later complication, without mention of misadventure at the time of the procedure; D64.9 Anemia, unspecified; R73.9 Hyperglycemia, unspecified; K59.00 Constipation, unspecified; K80.20 Calculus of gallbladder without cholecystitis without obstruction; Z98.890 Other specified postprocedural states; Z11.52 Encounter for screening for COVID-19
CPT/HCPCS: 0241U; 36415; 36569; 70450; 71045; 71250; 72125; 74177; 74230; 76705; 80048; 80053; 80061; 80076; 80202; 80306; 81001; 82570; 82607; 82728; 83036; 83540; 83550; 83605; 83735; 83930; 83935; 84156; 84300; 84443; 84540; 85025; 85046; 85610; 85730; 86140; 86780; 86850; 86900; 86901; 87040; 87070; 87077; 87186; 87205; 87389; 90715; 93005; 93010; 93306; 96365; 96375; C1751; C9113; J0692; J1100; J1170; J1644; J1885; J2272; J2704; J3010; J3370; J3370-JW; J3411; J3475; J3490; J7120